=== PATIENT | female | born 1995 | race Caucasian/White ===

== ENCOUNTER 2022-06-09 08:57 | Outpatient (CLI) | payer MEDICAID, SELFPAY ==
[2022-06-11 02:21] LABS: Rapid Plasma Reagin (RPR) Non Reactive (Non Reactive)
== END 2022-06-09 08:58 | disposition home or self-care (01) ==
LOC: NFLDREF 08:58
PROVIDERS: Visit Provider Advanced Practice Midwife
DX: Z34.83 Encounter for supervision of other normal pregnancy, third trimester (principal); Z3A.27 27 weeks gestation of pregnancy
CPT/HCPCS: 86592

== ENCOUNTER 2022-06-09 09:18 | Outpatient (CLI) | payer MEDICAID, SELFPAY ==
--- NOTE | 2022-06-09 09:15 | CRLHL7_ITS ---
For Patients: As a result of the Century Cures Act, medical imaging exams and procedure reports are released immediately into your electronic medical record. You may view this report before your referring provider. If you have questions, please contact your health care provider. INDICATION: HX OF IUGR TECHNIQUE: Real time lakhani scale imaging of the fetus was performed as well as color Doppler and spectral Doppler analysis of the umbilical artery. COMPARISON: None FINDINGS: Sonographic imaging demonstrates a single living intrauterine gestation. Fetus demonstrates a regular cardiac rate of 142 beats per minute. Fetus has a vertex position. The placenta lies anteriorly. Amniotic fluid volume appears normal and there is a single deepest pocket of 6.9 cm. The estimated weight is 1001gm which lies at the 4th %. BPD 22nd percentile. HC 37th percentile. AC 10th percentile. FL less than 3rd percentile. There is adequate diastolic blood flow within the umbilical artery. The S/D ratio measures 3.2. The fetus was active and demonstrated normal breathing movements. There was normal flexion and extension of the trunk and extremities. IMPRESSION: Normal biophysical profile score 8/8. Sonographic gestational age 27 weeks 4 days and sonographic due date 09/04/2022. Sonographic age is 6 days behind the clinical age. Estimated weight 4th percentile. Abdominal circumference 10th percentile. Femur length less than 3rd percentile. Dictated by Rodri Duque MD @ 06/09/2022 10:29:10 AM (Electronically Signed)
== END 2022-06-09 09:19 | disposition home or self-care (01) ==
LOC: US 09:19
PROVIDERS: Visit Provider Advanced Practice Midwife
DX: O36.5930 Maternal care for other known or suspected poor fetal growth, third trimester, not applicable or unspecified (principal); Z87.59 Personal history of other complications of pregnancy, childbirth and the puerperium; Z3A.29 29 weeks gestation of pregnancy
CPT/HCPCS: 76816; 76819; 76820

== ENCOUNTER 2022-06-16 09:43 | Outpatient (CLI) | payer MEDICAID, SELFPAY ==
--- NOTE | 2022-06-16 09:45 | CRLHL7_ITS ---
For Patients: As a result of the Century Cures Act, medical imaging exams and procedure reports are released immediately into your electronic medical record. You may view this report before your referring provider. If you have questions, please contact your health care provider. INDICATION: Intrauterine growth retardation. TECHNIQUE: Transabdominal obstetrical ultrasound. Grayscale and color spectral Doppler waveform analysis of the umbilical artery was performed. COMPARISON: June 09, 2022. FINDINGS: Single living intrauterine in vertex presentation. Anterior placenta. heart rate 129 beats per minute. Normal amniotic fluid. Single deepest pocket measurement 6.2 cm. The umbilical artery systolic to diastolic ratio is normal at 3.1. Biophysical profile score 8/8 with 2 points given each for breathing, movement, tone, and amniotic fluid. IMPRESSION: Biophysical profile score 8/8. Dictated by Musa Jimenez MD @ 06/16/2022 10:40:00 AM (Electronically Signed)
== END 2022-06-16 09:44 | disposition home or self-care (01) ==
PROVIDERS: Visit Provider Advanced Practice Midwife
DX: O36.5990 Maternal care for other known or suspected poor fetal growth, unspecified trimester, not applicable or unspecified (principal)
CPT/HCPCS: 76819; 76820

== ENCOUNTER 2022-07-01 14:08 | Outpatient (CLI) | payer MEDICAID, SELFPAY | END 2022-07-01 14:09 | disposition home or self-care (01) | PROVIDERS: Visit Provider Pediatrics Neonatal-Perinatal Medicine | DX: O36.5930 Maternal care for other known or suspected poor fetal growth, third trimester, not applicable or unspecified (principal); Z3A.31 31 weeks gestation of pregnancy | CPT/HCPCS: 76816; 76820 ==

== ENCOUNTER 2022-07-21 11:08 | Outpatient (CLI) | payer MEDICAID, SELFPAY ==
[2022-07-21 13:44] LABS: Amphetamine Screen Urine Negative (Negative); Barbiturate Screen Urine Negative (Negative); Benzodiazepines Screen Urine Negative (Negative); Cocaine Screen Urine Negative (Negative); Methadone Screen Urine Negative (Negative); Methamphetamines Screen Urine Negative (Negative); Opiate Screen Urine Negative (Negative); Oxycodone Screen Urine Negative (Negative); Phencyclidine Screen Urine Negative (Negative); Tricyclic Antidepressant Urine Negative (Negative)
[2022-07-21 14:11] LABS: Cannabinoid Screen Urine POSITIVE (Negative)
== END 2022-07-21 11:09 | disposition home or self-care (01) ==
LOC: NFLDREF 11:09
PROVIDERS: Visit Provider Advanced Practice Midwife
DX: F12.91 Cannabis use, unspecified, in remission (principal)
CPT/HCPCS: 80306

== ENCOUNTER 2022-08-04 09:10 | Outpatient (CLI) | payer MEDICAID, SELFPAY ==
--- NOTE | 2022-08-04 09:15 | CRLHL7_ITS ---
For Patients: As a result of the Cures Act, medical imaging exams and procedure reports are released immediately into your electronic medical record. You may view this report before your referring provider. If you have questions, please contact your health care provider. INDICATION: IUGR TECHNIQUE: Real time lakhani scale imaging of the fetus was performed as well as color Doppler and spectral Doppler analysis of the umbilical artery. COMPARISON: 07/01/2022 FINDINGS: Sonographic imaging demonstrates a single living intrauterine gestation. Fetus demonstrates a regular cardiac rate of 165 beats per minute. Fetus has a vertex position. The placenta lies anteriorly. Amniotic fluid volume appears normal and there is a single deepest pocket of 6.7 cm. The estimated weight is 2387gm which lies at the 8th %. On the prior OB ultrasound dated 07/01/2022 the estimated weight was at the 29th percentile. There is adequate diastolic blood flow within the umbilical artery. The S/D ratio measures 2.6. BPD 8th percentile. HC 23rd percentile. AC 30th percentile. FL less than 3rd percentile. The fetus was active and demonstrated normal breathing movements. There was normal flexion and extension of the trunk and extremities. IMPRESSION: Normal biophysical profile score 8/8. Sonographic gestational age 34 weeks 2 days and sonographic due date of 09/13/2022. Sonographic age is 15 days behind the clinical age. Estimated weight 8th percentile. Abdominal circumference 30th percentile. FL less than 3rd percentile. Dictated by Rodri Duque MD @ 08/04/2022 10:26:19 AM (Electronically Signed)
== END 2022-08-04 09:11 | disposition home or self-care (01) ==
LOC: US 09:11
PROVIDERS: Visit Provider Advanced Practice Midwife
DX: O36.5930 Maternal care for other known or suspected poor fetal growth, third trimester, not applicable or unspecified (principal); Z3A.34 34 weeks gestation of pregnancy
CPT/HCPCS: 76816; 76819; 76820

== ENCOUNTER 2022-08-04 10:49 | Outpatient (CLI) | payer MEDICAID, SELFPAY ==
[2022-08-05 12:56] LABS: Strep B DNA Probe NEGATIVE (Negative)
[2022-08-05 13:07] LABS: Strep B Pen/Amox Allergy No
== END 2022-08-04 10:50 | disposition home or self-care (01) ==
LOC: NFLDREF 10:50
PROVIDERS: Visit Provider Advanced Practice Midwife
DX: O36.5930 Maternal care for other known or suspected poor fetal growth, third trimester, not applicable or unspecified (principal); Z3A.34 34 weeks gestation of pregnancy
CPT/HCPCS: 87081; 87653

== ENCOUNTER 2022-08-12 12:16 | Outpatient (CLI) | payer MEDICAID, SELFPAY ==
--- NOTE | 2022-08-12 12:15 | CRLHL7_ITS ---
For Patients: As a result of the Century Cures Act, medical imaging exams and procedure reports are released immediately into your electronic medical record. You may view this report before your referring provider. If you have questions, please contact your health care provider. INDICATION: IUGR COMPARISON: 08/04/2022 TECHNIQUE: Real time lakhani scale imaging of the fetus was performed as well as color Doppler and spectral Doppler analysis of the umbilical artery. Without non-stress testing. FINDINGS: Sonographic imaging demonstrates a single living intrauterine gestation. Fetus demonstrates a regular cardiac rate of 144 beats per minute. Fetus has a vertex position. The umbilical artery demonstrates adequate diastolic blood flow. The S/D ratio measures 2.8. The amniotic fluid volume appears normal and there is a single deepest pocket measurement of 7.1 cm. NATIVIDAD 23.6 cm. The fetus was active and demonstrated normal breathing movements. There was normal flexion and extension of the trunk and extremities. IMPRESSION: Normal biophysical profile score of 8 out of 8. Normal umbilical artery Doppler. Dictated by Rodri Duque MD @ 08/13/2022 6:36:02 AM (Electronically Signed)
== END 2022-08-12 12:17 | disposition home or self-care (01) ==
LOC: US 12:16
PROVIDERS: Visit Provider Advanced Practice Midwife
DX: O36.5990 Maternal care for other known or suspected poor fetal growth, unspecified trimester, not applicable or unspecified (principal); Z3A.00 Weeks of gestation of pregnancy not specified
CPT/HCPCS: 76819; 76820

== ENCOUNTER 2022-08-20 10:32 | Outpatient (CLI) | payer MEDICAID, SELFPAY ==
--- NOTE | 2022-08-20 10:45 | CRLHL7_ITS ---
For Patients: As a result of the Cures Act, medical imaging exams and procedure reports are released immediately into your electronic medical record. You may view this report before your referring provider. If you have questions, please contact your health care provider. INDICATION: Intrauterine growth retardation. TECHNIQUE: Transabdominal obstetrical ultrasound. FINDINGS: Single living intrauterine in vertex presentation. Anterior placenta. heart rate 144 beats per minute. Normal amniotic fluid. Single deepest pocket measurement 7.26 cm. Amniotic fluid volume index is normal at 22.5. The umbilical artery systolic to diastolic ratio is 2.9 which is normal in this patient who is 38 weeks 5 days according to her last menstrual period. IMPRESSION: Single living intrauterine in vertex presentation. heart rate 144 beats per minute. Normal amniotic fluid. Dictated by Musa Jimenez MD @ 08/21/2022 9:39:30 AM (Electronically Signed)
== END 2022-08-20 10:33 | disposition home or self-care (01) ==
LOC: US 10:32
PROVIDERS: Visit Provider Obstetrics & Gynecology
DX: O36.5990 Maternal care for other known or suspected poor fetal growth, unspecified trimester, not applicable or unspecified (principal); Z3A.00 Weeks of gestation of pregnancy not specified
CPT/HCPCS: 76815

== ENCOUNTER 2022-08-21 07:07 | Inpatient (IN) | payer MEDICAID, SELFPAY ==
[2022-08-21] VITALS (48 sets, daily range): BP systolic 97–135; BP diastolic 50–82; PULSE 73–114; RESP 16; TEMP 36.5–37.1; O2SAT 98–99; BMI 28.3
--- NOTE | 2022-08-21 08:14 | W.PM.LDBA ---
Documented by User: Josénubia Yanesomer 08/21/22 08:27 Subjective History of Present Illness Date Seen: 08/21/22 Narrative: Patient is being admitted to Labor and Delivery for induction of labor for SLIM EFW is 8%til.. She is a 27 year old at weeks gestation. Her full history and physical was done 08/12 by Yfn Moore CNM. 1. Smoking, cut down to 1-3 per day. Would like to try patch. 07/21/2022: smoke free for ONE MONTH! 2. THC use use daily, doesn't plan to stop UDS completed at NOB:presumptive +THC UDS + in 3rd trimester 3. Hx of Section w/ Successful C/s for NRFHT and failure to progress with IUGR and abnormal dopplers; complicated by Trisomy 21 TOLAC CONSULT at 32 weeks: Done, consent signed on 07/07/2022. 4. 1st child with Trisomy 21 Genetic screening preformed, negative NIPT screening 5. Rubella non-immune Recommend vaccine pp 6. IUGR 28 wks - EFW 4.3% Hx of IUGR w/ 1st EFW 14%ile at anatomy scan, Resolved, plan follow-up with 36 week Growth US MFM consult: 07/01/2022 EFW 1736 g (29%). No evidence of IUGR. Routine obstetric follow-up recommended. Growth ultrasound at 36 weeks: EFW 8%ile. Weekly BPP recommended BPP added next visit, may need on added to 38 week visit Recommended IOL at 38 0/7 weeks - 39 0/7 weeks gestation; Pt prefers 39 weeks -IOL scheduled 08/21 per pt preference w/ childcare (available 08/20 & 08/21). Will likely come in day before for membrane sweep. Could also consider cook on 08/20 if needed. 7. Elevated NATIVIDAD, does not meet criteria for poly at this time. OB - Problem Based A/P Additional Plan (1) IUGR (intrauterine growth restriction): Status: Resolved (2) Marijuana abuse: Status: Acute (3) Encounter for trial of labor: Status: Acute (4) History of section: Status: Acute OB Exam Physical Exam Vital signs: Temp Pulse BP 98 F 95 128/61 08/21/22 07:13 08/21/22 07:13 08/21/22 07:13 Narrative: Vitals Reviewed? Psychiatric:? Alert and oriented x3? HEENT:? Normocephalic, atraumatic? Neck:? Supple?? Lungs:? Clear to auscultation bilaterally? Heart:? Regular rate and rhythm, no murmur, rub or gallop? Abdomen:? Soft, nontender, and gravid. Vertex by Carlos's, confirmed with cervical exam.? Extremities:? No edema or erythema Detailed Labor and Delivery Exam Patient Gravid: Yes Documented by User: Nicolasa Moore CNM 08/21/22 10:03 Subjective History of Present Illness Narrative: Patient is being admitted to Labor and Delivery for induction of labor for IGUR EFW is 8%til. She is a 27 year old at 38.6 weeks gestation. Her full history and physical was done 08/12 by Yfn Moore CNM. She is a TOLAC. She has had one previous successful . Her partner is coming later today for support. She is planning an unmedicated , but is open to an epidural if needed. 1. Smoking, cut down to 1-3 per day. Would like to try patch. 07/21/2022: smoke free for ONE MONTH! 2. THC use use daily, doesn't plan to stop UDS completed at NOB:presumptive +THC UDS + in 3rd trimester 3. Hx of Section w/ Successful C/s for NRFHT and failure to progress with IUGR and abnormal dopplers; complicated by Trisomy 21 TOLAC CONSULT at 32 weeks: Done, consent signed on 07/07/2022. 4. 1st child with Trisomy 21 Genetic screening preformed, negative NIPT screening 5. Rubella non-immune Recommend vaccine pp 6. IUGR 28 wks - EFW 4.3% Hx of IUGR w/ 1st EFW 14%ile at anatomy scan, Resolved, plan follow-up with 36 week Growth US M consult: 07/01/2022 EFW 1736 g (29%). No evidence of IUGR. Routine obstetric follow-up recommended. Growth ultrasound at 36 weeks: EFW 8%ile. Weekly BPP recommended BPP added next visit, may need on added to 38 week visit Recommended IOL at 38 0/7 weeks - 39 0/7 weeks gestation; Pt prefers 39 weeks -IOL scheduled 08/21 per pt preference w/ childcare (available 08/20 & 08/21). Will likely come in day before for membrane sweep. Could also consider cook on 08/20 if needed. 7. Elevated NATIVIDAD, does not meet criteria for poly at this time. OB - Problem Based A/P Additional Plan (1) IUGR (intrauterine growth restriction): Status: Resolved (2) Marijuana abuse: Status: Acute (3) Encounter for trial of labor: Status: Acute (4) History of section: Status: Acute Plan at 38.6 weeks GBS neg TOLAC, previous successful problems: -IUGR - EFW 8% -Elevated fluid levels, do not meet criteria for polyhydramnios (SDP 7.26, NATIVIDAD 22.5) -Smoker, stopped during -Marijuana use throughout -Rubella non immune, needs vaccine PP IOL for IUGR 1. Admit to L & D. Reviewed options for IOL. Decision made to proceed with pitocin 2. Continuous monitoring r/t IUGR, TOLAC, & pitocin 3. IV access 4. Candidate for analgesia of choice. Planning unmedicated, but open to nitrous and and epidural if needed 5. Does not meet criteria for waterbirth 6. TOLAC consent signed previously. Dr. Arreola consulted, aware pt is being induced 7. Anticipate progress to NVD. Delivery/Labor/Induction Plan Plan: induction Induction method: per pitocin protocol OB Exam Physical Exam Narrative: VSS, afebrile? General Appearance:? Calm, cooperative.? No acute distress.? Normal affect.? Psychiatric Exam: Alert and oriented, appropriate affect? HEENT: normocephalic, neck supple, full ROM? Respiratory:? Symmetrical chest wall movement.? Normal respiratory effort.? Clear to auscultation? Cardiac:? regular rate and rhythm? Abdomen: Gravid, non tender? Extremities:? normal and trace edema? Skin: warm, dry.??? Ctx:? Q mild, irregular FHTs:? Baseline: 135.? Variability: moderate.?? Accels: present.??? Decels:? none.? SVE: 1-2/50/-3? Membranes: intact?
[2022-08-21 08:20] LABS: Basophils Absolute Auto 0.02 K/uL (0.00-0.30); Basophils Percent Auto 0.2 % (0.0-3.0); Eosinophils Absolute Auto 0.04 K/uL (0.00-0.50); Eosinophils Percent Auto 0.5 % (0.0-7.0); Hematocrit 31.6 % (33.0-51.0); Hemoglobin* 10.7 gm/dL (12.0-16.0); Immature Granulocytes Abs Auto 0.02 K/uL (0.00-0.30); Immature Granulocytes Pct Auto 0.2 %; Lymphocytes Percent Auto 17.3 % (20-44); Mean Corpuscular HGB Conc 34 gm/dL (32-36); Mean Corpuscular Hemoglobin 32 pg (26-34); Mean Corpuscular Volume 96 fL (80-100); Monocytes Percent Auto 9.5 % (0.0-11.0); Neutrophils Percent Auto 72.3 % (42.0-72.0); Platelet Count* 300 K/uL (140-440); RDW Coefficient of Variation % 12.9 % (11.5-15.5); Red Blood Count 3.31 m/uL (4.00-5.20); White Blood Count* 8.65 K/uL (4.50-11.00)
[2022-08-21 08:23] LABS: Slide Review Reflex No
[2022-08-21] MEDS: LACTATED RINGERS 1000 ML 1,000 ML 125 ML IV ×3 (09:14→22:22)
[2022-08-21] MEDS: OXYTOCIN 30 unit/500 ML in NS 30 UNIT/500 ML BAG IVPB (09:22)
[2022-08-21 09:33] LABS: Amphetamine Screen Urine Negative (Negative); Barbiturate Screen Urine Negative (Negative); Benzodiazepines Screen Urine Negative (Negative); Cocaine Screen Urine Negative (Negative); Methadone Screen Urine Negative (Negative); Methamphetamines Screen Urine Negative (Negative); Opiate Screen Urine Negative (Negative); Oxycodone Screen Urine Negative (Negative); Phencyclidine Screen Urine Negative (Negative); Tricyclic Antidepressant Urine Negative (Negative)
[2022-08-21 09:35] LABS: Cannabinoid Screen Urine POSITIVE (Negative)
[2022-08-21 11:06] LABS: SARS PCR* Negative SARS-CoV-2 (Negative)
--- NOTE | 2022-08-21 13:56 | P.OBPN_ITS ---
Subjective Date Seen: 08/21/22 Narrative: Brandi is resting in bed with her partner at this time, appears comfortable able to talk through contractions. IV Pitocin is infusing per protocol. Discussed plan of care, offered cervical exam and AROM if favorable positioning if she desired. She is comfortable with current plan and declined at this time. Plans to get in tub soon for pain management and may use Nitrous once out. Objective Exam: Constitutional: Alert and oriented x3, mild distress, coping well? Vital signs stable, see nurse documentation?? Abdomen: gravid, contractions palpate mild with contractions and soft between Vital Signs: Last Vital Signs Temp 97.9 F 08/21/22 12:53 Pulse 78 08/21/22 12:53 BP 112/63 08/21/22 12:53 Contractions Monitor mode: External Contraction Frequency: 3-4 Contraction pattern: Regular Contraction intensity: Mild Pitocin Rate (mU/min): 8 Assessment Assessment: induction ongoing Status: Category l Heart Rate Baseline: 140 Assisted Variability: Moderate (6-25) Monitor Accelerations: Present Monitor Decelerations: None Plan Plan: at 38.6 weeks GBS neg TOLAC, previous successful problems: -IUGR - EFW 8% -Elevated fluid levels, do not meet criteria for polyhydramnios (SDP 7.26, NATIVIDAD 22.5) -Smoker, stopped during -Marijuana use throughout -Rubella non immune, needs vaccine PP IOL for IUGR 1.? Continue with Pitocin for induction, encourage positioning and ambulation to promote physiologic labor and . 2.? Continuous monitoring r/t IUGR, TOLAC, & Pitocin 3.? IV access 4.? Candidate for analgesia of choice.? Planning unmedicated, but open to nitrous and and epidural if needed 5.? Does not meet criteria for waterbirth 6.? TOLAC consent signed previously.? Dr. Arreola consulted, aware pt is being induced 7.? Anticipate progress to NVD.?
[2022-08-21] MEDS: ROPIVACAINE 0.2% 100 ml 100 ML 12 MG EPIDURAL (20:19)
[2022-08-21] MEDS: ROPIVACAINE 0.2 % PF 10 ML INJ 20 MG EPIDURAL (20:19)
[2022-08-21] MEDS: LIDOCAINE 2% (PF) 5 ML VIAL EPIDURAL (20:19)
--- NOTE | 2022-08-21 20:45 | PM.ANBPRC ---
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 Partner: Omero Jacinto [employer] Lives with: Rosanne Jacinto Kehlani Pets: none Abuse: Denies past/present Special Diet: Denies Ok with a blood transfusion: yes Culture or episcopal beliefs: denies RISK FACTORS Exercise Times/wk: Not routinely Depression/Anxiety: Anxiety/Depression At Transfer visit: TRUDI: 4 PHQ 9: 1 Seat Belt Use: Routinely Smoking: Currently smoking, started at age 13; cut down in ; Uses THC Alcohol/day: Denies while ; social approximately couple times a month Caffeine: Caffeine, 1/2 pot a coffee, 1 can of soda Drug Use: Remote history of pain killers (hydrocordone, percocet) 6 years ago. Chicken Pox: Yes as a child MRSA: Denies Smoking Status: Former smoker Little interest or pleasure in doing things: not at all Feeling down, depressed, or hopeless: not at all Meds Home Medications and Allergies Home Medications Medication Instructions Recorded Confirmed Type ferrous sulfate 324 mg (65 mg 324 mg PO QDAY 07/01/22 08/21/22 History iron) tablet,delayed release esomeprazole magnesium 40 mg 40 mg PO QDAY 08/04/22 08/21/22 History capsule,delayed release Allergies Allergy/AdvReac Type Severity Reaction Status Date / Time No Known Drug Allergies Allergy Verified 08/21/22 07:17 Results Labs Labs: Laboratory Results - last 24 hr 08/21/22 08/21/22 08/21/22 08:10 08:57 10:15 WBC 8.65 RBC 3.31 L Hgb 10.7 L Hct 31.6 L MCV 96 MCH 32 MCHC 34 RDW Coeff of Jose Carlos 12.9 Plt Count 300 Neut % (Auto) 72.3 H Lymph % (Auto) 17.3 L [place] % (Auto) 9.5 Eos % (Auto) 0.5 Baso % (Auto) 0.2 Neut # (Auto) 6.30 Lymph # (Auto) 1.50 [place] # (Auto) 0.80 Eos # (Auto) 0.04 Baso # (Auto) 0.02 Urine Opiates Screen Negative Ur Oxycodone Screen Negative Urine Methadone Screen Negative Ur Propoxyphene Screen Negative Ur Barbiturates Screen Negative U Tricyclic Antidepress Negative Ur Phencyclidine Scrn Negative Ur Amphetamines Screen Negative U Methamphetamines Scrn Negative U Benzodiazepines Scrn Negative Urine Cocaine Screen Negative U Marijuana (THC) Screen POSITIVE A* SARS-CoV-2 (PCR) Negative SARS-CoV-2 Blood Type O Positive Antibody Screen NEGATIVE Vital Signs Vital Signs: Last Vital Signs Temp 98.7 F 08/21/22 19:49 Pulse 76 08/21/22 20:34 Resp 16 08/21/22 19:49 BP 126/76 08/21/22 20:34 Pulse Ox 98 08/21/22 20:40 Weight: 63.684 kg Height: 149.86 cm Anesthesia Procedures Epidural Insertion Patient Location: OB Start Time: 19:50 Stop Time: 20:45 Start Date: 08/21/22 Stop Date: 08/21/22 Reason for Block: procedure for pain Patient Position: sitting Performed By: Wagner Stephens Preanesthetic Checklist: IV checked, risks and benefits discussed, surgical consent, monitors and equipment checked, pre-op evaluation, timeout performed and anesthesia consent Prep: chlorhexidine gluconate Monitoring: blood pressure monitoring, continuous pulse oximetry and heart rate Approach: midline Vertebral Space: lumbar (1-5) Needle Type: Tuohy needle Injection Technique: continuous catheter Needle gauge: 17 Needle Length (cm): 10 cm Needle Insertion Depth (cm): 6 Catheter Gauge: 19 Catheter Type: multi-orifice Catheter at skin depth (cm): 12 Test Dose Result: negative and lidocaine 1.5% with epinephrine 1 to 200,000
[2022-08-21] MEDS: PHENYLEPHRINE 100 MCG/ML SYRINGE IVP (21:36)
[2022-08-21] MEDS: ePHEDrine sulfate 5 MG/ML inj 10 MG IVP (21:55)
[2022-08-21] MEDS: ONDANSETRON 2 MG/ML inj 4 MG IV (22:36)
[2022-08-22] VITALS (12 sets, daily range): BP systolic 100–118; BP diastolic 54–79; PULSE 71–96; RESP 16–18; TEMP 36.6–37.3; O2SAT 97–99
--- NOTE | 2022-08-22 00:03 | W.PM.VAGDE_ITS ---
Documented by User: Thom Mixon 08/22/22 00:22 OB Procedure Vag Delivery Mother Details Mother Details: Brandi is a 27 year-old, 3, Para 2, admitted on 08/21/22 at 39.0 weeks gestation for induction of labor for IUGR in the [facility]. She has a history of a previous section and one successful . She is a THC and cigarette smoker although she quit smoking cigarettes during her . She was started on IV Pitocin this morning and had AROM of clear fluid at 1532. She repositioned frequently, used the tub for pain control and then got an epidural. Throughout labor heart tones had periods of minimal variability, occasional variable, early and late decelerations noted. Position changes and fluid bolus's given with some improvement. She progressed to complete at 2259, began pushing in the hands and knees position but had difficulty feeling how to push in that position. Turned to right tilt position in bed and pushed well. : 3 Para: 3 Weeks Gestation: 39.0 Admission Date: 08/21/22 Additional Details Amniotic Membrane Status: AROM Amniotic Membrane Rupture Date: 08/21/22 Amniotic Membrane Rupture Time: 15:32 Amniotic Membrane Fluid Description: Clear Analgesia/Anesthesia Type: Epidural Waterbirth: No Pitcoin: Yes Intrapartal Events: Labor Induction Induction Method: per pitocin protocol and AROM Labor Onset: 20:45 Complete: 22:59 Pushin:16 Heart: heart tones during second stage were Category 2, FHR 170 with variable decels with good return to baseline and moderate variability. Delivery Details Delivery Date: 08/21/22 Delivery Time: 23:30 Route of delivery: Infant Gender: Female Viability: Alive; Heart Rate Present Position at Delivery: OA Delivery Details: Patient had an uncomplicated labor that progressed normally/with induction to complete. Patient pushed well in right tilt position. of a viable female at 2330 in right tilt. Vertex delivered OA. There was a nuchal cord times one, no shoulder. Body delivered easily and without incident. passed to mothers abdomen with a vigorous cry. Cord was clamped and cut at > 5 minutes. APGARS were 8 at one minute and 9 at five minutes respectively. Mouth was bulb suctioned. Intact placenta with a 3 vessel cord delivered spontaneously. IV Pitocin was given after delivery of the baby. Fundus firm. No tears were identified. QBL 150 cc. Mother and baby stable; mother plans to breastfeed. weight pending. 1 Minute Interval Total Score: 8 5 Minute Interval Total Score: 9 Additional Details Shoulder Dystocia: No Placenta Delivery Time: 23:39 Placental Delivery Description: Spontaneous Procedure Done: Global Blood Loss: 150 Laceration: None Blood Loss Measurement Type: QBL Bakri Used: No Sponge/Need Count Correct: Yes Cord Vessel Description: 3 Vessels, Nuchal Cord (times one) and Delivered through Event Summary Status: Mother and were stable after delivery. Disposition: floor Documented by User: Nicolasa Moore CNM 08/22/22 00:48 OB Procedure Vag Delivery Additional Details Delivery augmentation: rupture of membranes
[2022-08-22] MEDS: DOCUSATE SODIUM 100 MG CAPSULE PO (04:35)
[2022-08-22] MEDS: ACETAMINOPHEN 500 MG TABLET 1000 MG PO ×2 (09:11→16:50)
--- NOTE | 2022-08-22 09:43 | P.OBPN_ITS ---
OB - PN:Subj Subjective Time Seen by Provider: 09:43 Date Seen: 08/22/22 Interval history: Brandi is a 7 y.o. who was admitted to L & D for IOL for IUGR. She had an uncomplicated NVD. Patient comments OB post-: no complaints, pain well controlled, tolerating diet and flatus present status: doing well [place] feeding status: exclusively Narrative: The patient feels well. The pain is mostly well controlled with current medications. She does have increased cramping, but a heating pack has helped. She has no new complaints. She is breast feeding and reports things are going well.? the patient has done well.? Vitals have been stable.? She has remained afebrile.? Has a good appetite, is tolerating a general diet. She is voiding without difficulty.? She is passing gas and has not had a bowel movement.? She is ambulating and denies any dizziness.? Has Small amount of rubra lochia. OB - PN: Obj Exam Physical Exam: Vital signs: Temp Pulse Resp BP Pulse Ox O2 Del Method 98.4 F 86 16 115/79 98 Room Air 08/22/22 09:06 08/22/22 09:06 08/22/22 09:06 08/22/22 09:06 08/22/22 09:06 08/22/22 09:06 Narrative: GENERAL APPEARANCE: normal affect, alert, no distress MOOD: appropriate HEENT: normocephalic, neck supple, full ROM CHEST: Symmetrical chest wall movement. Normal respiratory effort. Clear to auscultation HEART: regular rate and rhythm ABDOMEN: soft, non-tender. Uterine fundus is firm, at Umbilicus, Midline and is appropriate for the stage of recovery. Bowel sounds present. PERINEUM: mild edema of the perineum, there is no lacerations EXTREMITIES: normal and no edema OB - PN: Obj Data Labs Labs: Laboratory Results - last 24 hr 08/21/22 10:15 SARS-CoV-2 (PCR) Negative SARS-CoV-2 OB - PN: A/P Vaginal Delivery Assessment and Plan (1) IUGR (intrauterine growth restriction): Status: Resolved (2) Marijuana abuse: Status: Acute (3) Encounter for trial of labor: Status: Acute (4) History of section: Status: Acute Plan Plan: routine care Comments: G 3 P 3 status post uncomplicated NVD 1. Continue route PP cares 2. . May see if desired 3. Anticipate discharge home tomorrow
[2022-08-22] MEDS: IBUPROFEN 600 MG TABLET PO ×2 (11:51→19:59)
[2022-08-23 02:22] VITALS: BP 117/76; PULSE 79; RESP 16; TEMP 36.6; O2SAT 98
[2022-08-23 05:17] VITALS: BP 101/67; PULSE 55; RESP 16; TEMP 36.8; O2SAT 97
[2022-08-23 08:34] VITALS: BP 111/75; PULSE 82; RESP 16; TEMP 37.6; O2SAT 99
[2022-08-23] MEDS: ACETAMINOPHEN 500 MG TABLET 1000 MG PO (10:16)
[2022-08-23] MEDS: DOCUSATE SODIUM 100 MG CAPSULE PO (10:16)
--- NOTE | 2022-08-23 11:14 | P.DS_ITS ---
DS: Providers Provider Time Seen by Provider: 11:14 Date Seen: 08/23/22 Date of admission: 08/21/22 07:07 Primary care physician: Not a Local Provider Admitting Clinician: Nicolasa Moore CNM Attending Physician on discharge: Nicolasa Moore CNM Date of Discharge: 08/23/22 DS: Diagnosis Discharge Diagnosis (1) (vaginal after ): Status: Acute (2) Anxiety and depression: Status: Acute Problem details: Meds in high school; none since Exam Narrative: Exam Narrative: VSS, afebrile GENERAL APPEARANCE: ?normal affect, alert, no distress MOOD: ?appropriate HEENT: normocephalic, neck supple, full ROM CHEST: ?Symmetrical chest wall movement. ?Normal respiratory effort. ?Clear to auscultation HEART: ?regular rate and rhythm ABDOMEN: ?soft, non-tender. Uterine fundus is firm, 1 below Umbilicus, Midline and is appropriate for the stage of recovery. ?Bowel sounds present. PERINEUM: ?No edema of the perineum, there is no laceration present EXTREMITIES: ?normal and no edema Const: Vital Signs, click to edit/add: Vital Signs - 24 hr 08/22/22 11:52 08/22/22 17:08 08/22/22 20:42 Temperature 98.2 F 98.2 F 97.8 F Pulse Rate [Pulse Oximeter] 88 73 74 Respiratory Rate 16 16 16 Blood Pressure [Ri ght Arm] 111/75 110/73 118/75 Pulse Oximetry 99 98 97 Oxygen Delivery Me thod Room Air Room Air Room Air 08/23/22 02:22 08/23/22 05:17 08/23/22 08:34 Temperature 97.9 F 98.2 F 99.7 F H Pulse Rate [Pulse Oximeter] 79 55 L 82 Respiratory Rate 16 16 16 Blood Pressure [Ri ght Arm] 117/76 101/67 111/75 Pulse Oximetry 98 97 99 Oxygen Delivery Me thod Room Air Room Air Room Air Documenting provider has reviewed patient's vital signs: yes OB - DS: Summary Hospital Course Hospital Course: Brandi is a 3 y.o. G 3 P 3 who was admitted to [facility] for IUGR. ?She had an uncomplicated NVD/ The patient feels well. ?The pain is well controlled with current medications. ?She has no new complaints. ?She is breast feeding and reports things are going well.? the patient has done well.? Vitals have been stable.? She has remained afebrile.? Has a good appetite, is tolerating a general diet. ?She is voiding without difficulty.? She is passing gas and has had a bowel movement.? She is ambulating and denies any dizziness.? Has Small amount of rubra lochia. She is undecided for prevention, but consider partner vasectomy. She does have a hx of anxiety and depression, and states previously that these have been worse PP. This includes a hx of intrusive thoughts PP. She has taken meds in high school, but previously had declined treatment PP. Is open to trying medication at this time to preemptively avoid PP depression, anxiety and intrusive thoughts. Problems: none plan: Discharge home with baby. Follow up in 2 weeks and 6 weeks. , may follow up with if needed Hx of PP depression, anxiety and intrusive thoughts -Agreeable to starting Lexapro. Will do 1/2 dose for 1-2 weeks, and then increase to full dose. -Will reevaluate at 2 and 6 weeks PP. -Aware can also try therapy if desired. Peripartum Data delivery method: Vaginal Laceration description: None complications: none [place] Gender: Female Status at Discharge Functional status at discharge: independent ambulation Overall status at discharge: patient is progressing back to baseline Time Spent with Patient Time attestation: Total time spent providing and/or coordinating discharge services: Time spent: Less than 30 minutes Discharge Plan Discharge Disposition: Home, Self-Care Date of Admission: 08/21/22 07:07 Attending Provider on Discharge: Nicolasa Moore Primary Care Provider: Provider,Not a Local Condition: Stable Anticipated Discharge Date/Time: 08/23/22 12:21 Discharge Medications: New docusate sodium 100 mg Capsule 100 mg PO BID PRNQty: 100 0RF Rx Instructions: Take 1 cap 1-2 times a day as needed for constipation ibuprofen 600 mg Tablet 600 mg PO Q6H PRNQty: 60 0RF escitalopram oxalate [Lexapro] 10 mg tablet 10 mg PO DAILY Qty: 30 1RF Rx Instructions: Take 1/2 tab daily for 1-2 weeks. Then increase to full tab daily. Discontinued esomeprazole magnesium 40 mg capsule,delayed release(DR/EC) 40 mg PO QDAY metoclopramide HCl [Reglan] 10 mg tablet 10 mg PO Q6H PRN (Reason: nausea and vomiting) Qty: 7 0RF Hold Instructions: never took she reported ferrous sulfate 324 mg (65 mg iron) tablet,delayed release (DR/EC) 324 mg PO QDAY Discharge Orders: Discharge Order (Routine); Ordered 08/23/22 Ordered By: Nicolasa Moore Patient Education: OB Vaginal/Breast Feeding, OB Over the Counter Medication Information Additional Instructions: Follow up in 2 and 6 weeks Activity Level: Activity as Tolerated Discharge Diet: Regular Follow Up Appointments: Provider,Not a Local [Primary Care Provider] - Forms: [facility] Info Instructions
== END 2022-08-23 11:45 | disposition home or self-care (01) | DRG 806 ==
PROVIDERS: Admitting Provider Advanced Practice Midwife; Visit Provider Advanced Practice Midwife
DX: O34.211 Maternal care for low transverse scar from previous cesarean delivery (principal); O99.324 Drug use complicating childbirth; Z37.0 Single live birth; O36.5930 Maternal care for other known or suspected poor fetal growth, third trimester, not applicable or unspecified; F12.10 Cannabis abuse, uncomplicated; O99.334 Smoking (tobacco) complicating childbirth; F17.211 Nicotine dependence, cigarettes, in remission; O99.344 Other mental disorders complicating childbirth; F41.9 Anxiety disorder, unspecified; F32.A Depression, unspecified; Z3A.38 38 weeks gestation of pregnancy
CPT/HCPCS: 01967; 36415; 80306; 85025; 86850; 86900; 86901; 87635; 88307; A9270; J2370; J2405; J2795; J7120

== ENCOUNTER 2024-12-30 14:06 | Outpatient (CLI) | payer OTHER, SELFPAY ==
[2024-12-30 17:57] LABS: Chlamydia DNA Amplified* NOT DETECTED (No Detected); GC DNA Amplified* NOT DETECTED (No Detected)
== END 2024-12-30 14:07 | disposition home or self-care (01) ==
PROVIDERS: PCP Family Medicine
DX: N89.8 Other specified noninflammatory disorders of vagina (principal)
CPT/HCPCS: 87491; 87591